=== PATIENT | male | born 1975 | race Caucasian/White ===

== ENCOUNTER 2017-03-17 07:55 | Day surgery (SDC) | payer BC ==
[~2017-03-17 07:55] MED LIST: CORTIS10A AU; LEXA10TA PO; LORT5TAB PO; LOSA25TA31 PO
[2017-03-17 08:24] VITALS: BP 135/79; PULSE 58; RESP 14; TEMP 98.6; O2SAT 100
--- NOTE | 2017-03-17 09:50 | RADRPT ---
EXAM DATE/TIME: 03/17/2017 08:25 [place] COMPARISON: No previous studies available for comparison. EXTERNAL COMPARISON: [facility], CT SOFT TISSUE NECK,W/ CONTRAST, Mar 13 2017. INDICATIONS : Enlarged submandibular lymph node. MEDICAL HISTORY : Hypertension. SURGICAL HISTORY : None. ENCOUNTER: Initial ACUITY: 2 months PAIN SCORE: 0/10 LOCATION: Right neck. ORGAN: Right lymph node SPECIMENS: Three core specimen(s) submitted for pathologic evaluation. DEVICE: 20 gauge Temno needle Post procedure scanning reveals no hematoma or other complication. The possibility does exist that the tissue obtained will be non-diagnostic. If the sample is non-marci gnostic a repeat biopsy or surgical biopsy may need to be performed. TECHNIQUE: 1. Ultrasound guidance for needle biopsy. 2. Needle biopsy. I had a long discussion with the patient prior to the biopsy. We discussed the limitations of needle core biopsy of a lymph node in the possible setting of lymphoma. We also discussed surveillance versu s biopsy as well as excisional biopsy. He wished to proceed with core biopsy. I reviewed the patient' s outpatient CT scan of the neck. The risks, benefits and alternatives to the procedure were explaine d and verbal and written consent was obtained. The site was prepped in sterile fashion. Full steril e technique was used, including cap, mask, sterile gloves and gown and a large sterile sheet. Hand h ygiene and 2% chlorhexidine and/or betadine/alcohol prep was utilized per protocol for cutaneous anti sepsis. The skin and subcutaneous tissues were infiltrated with local anesthetic solution. Sterile gel and sterile probe cover were utilized for ultrasound guidance. With the patient on the ultrasound table, images were obtained. Within the right submandibular locati on there is a 13 x 10 x 5 mm lymph node which is slightly smaller than the prior CT. The prior CT it measured 19 x 10 mm. Lymph node on the ultrasound has a normal fatty hilar structure. The other lymph node seen on the CT of the neck is more deep and not as well-seen. The more superficial lymph node w as targeted during the biopsy. A 20 gauge core Temno needle was advanced into the identified target and 3 specimens as above obtaine d and submitted for pathologic evaluation. Samples were placed in formalin as well as RPMI of fluid. The patient tolerated the procedure well and left the ultrasound suite in stable condition. CONCLUSION: Uncomplicated ultrasound guided core needle biopsy of a right submandibular lymph node. Blu Ribera Jr., MD on March 17, 2017 at 9:44 Board Certified Radiologist. This report was verified electronically.
[2017-03-17] MEDS ORDERED: LIDOCAINE HCL 1% 20 ML VIAL ONE (13:06)
== END 2017-03-17 09:40 | disposition home or self-care (01) ==
LOC: HRAD 07:55 → HRIP 07:56 → HRAD 09:40
PROVIDERS: ATTEND Nurse Practitioner Family
DX: R59.0 Localized enlarged lymph nodes (principal); K11.1 Hypertrophy of salivary gland; I10 Essential (primary) hypertension
CPT/HCPCS: 38505; 76942; 88305